=== PATIENT | female | born 1945 | race Caucasian/White ===

== ENCOUNTER 2025-06-29 16:08 | Emergency (ER) | payer MEDICARE, BC ==
[~2025-06-29] VITALS: Ht 160 cm; Wt 50.0 kg
[2025-06-29 16:10] VITALS: O2SAT 74
[2025-06-29 16:31] VITALS: RESP 39
[2025-06-29] MEDS: MAGNESIUM 2 G PREMIX 50 ML IV SCH (16:33)
[2025-06-29] MEDS: IPRATROPIUM/ALBUTEROL 0.5-3(2.5)MG/3ML NEB HHN ONE (17:29)
[2025-06-29 17:40] LABS: HEMATOCRIT. 36.9 % (36.0-48.0); HEMOGLOBIN. 11.5 g/dL (12.0-16.0); MEAN PLATELET VOLUME 9.2 fl (7.4-10.4); PLATELET 410 x1000/uL (130-400); RED BLOOD CELL COUNT 3.81 mill/uL (4.2-5.4); RED CELL DISTRIBUTION WIDTH 17.2 % (11.6-14.6)
[2025-06-29 18:20] LABS: BAND% 31.0 % (1.0-6.0); LYMPHOCYTES % MANUAL 4.0 % (20.0-60.0); MONOCYTES % MANUAL 9.0 % (2.0-8.0); NEUTROPHILS % MANUAL 56.0 % (45.0-75.0); PLATELET ESTIMATE INCREASED
[2025-06-29] MEDS ORDERED: *TENECTEPLASE FOR AIS XX SCH (18:45)
[2025-06-29 18:58] VITALS: PULSE 86; RESP 22; O2SAT 96
[2025-06-29] MEDS: TENECTEPLASE 50MG/VIAL (FOR MI OR PE) IV ONE ×2 (19:25→20:25)
[2025-06-29] MEDS: NOREPINEPHRINE 8MG/250ML PMX 250 ML IV ONE (19:26)
[2025-06-29] MEDS ORDERED: EPINEPHRINE 10 MG in SODIUM CHLORIDE 0.9% 240 ML IV PRN ×2 (19:30→20:00)
[2025-06-29 19:46] VITALS: TEMP 35.6; O2SAT 91
[2025-06-29 19:49] VITALS: BP 95/46; PULSE 126; RESP 22
[2025-06-29] MEDS: MORPHINE SULFATE 4 MG/ML INJ (FOR IV/IM USE) IV ONE (19:49)
[2025-06-29 20:23] LABS: CREATININE 4.6 mg/dL (0.6-1.0); PROTEIN TOTAL 5.8 g/dL (6.0-8.3); UREA NITROGEN BLOOD 84 mg/dL (9-23)
[2025-06-29 20:24] LABS: ASPARTATE AMINOTRANSFERASE 207 IU/L (<34)
[2025-06-29 20:25] LABS: BILIRUBIN TOTAL 0.4 mg/dL (0.1-1.0)
[2025-06-29] MEDS ORDERED: PIPERACILLIN/TAZO 3.375G/50ML 50 ML IV SCH (22:00)
== END 2025-06-29 20:42 ==
LOC: ER 16:08 → CMPBEDREQ 06-30 10:51
DX: R06.02 Shortness of breath (principal); E11.9 Type 2 diabetes mellitus without complications; I10 Essential (primary) hypertension; J45.909 Unspecified asthma, uncomplicated
CPT/HCPCS: 99285; 92950; 31500; 96365; 71045; 96366; 96375; 96376; 93005; 80053; 82962; 85025; 85379; 36415; 94640; 94660; J3490; J3475; J3101; 94002; 94070; J2270; J7050